=== PATIENT | male | born 1980 | race American Indian/Alaskan Native ===

== ENCOUNTER 2017-03-28 03:07 | Emergency (ER) | payer SELFPAY ==
[2017-03-28] MEDS ORDERED: DILAUDID IV ONE (04:07)
[2017-03-28] MEDS ORDERED: ZOFRAN IV ONE (04:07)
[2017-03-28 06:45] LABS: Basophils % (Auto) 0.6 % (0.0-1.8); Eosinophils % (Auto) 2.1 % (0.0-4.3); Hemoglobin 14.4 gm/dl (11.8-15.2); White Blood Count 6.4 K/mm3 (4.5-11.0)
[2017-03-28 06:54] LABS: Hematocrit 43.8 % (35.5-45.6); Mean Corpuscular Hemoglobin 32 pg (28-32); Mean Corpuscular Volume 98 fl (84-94); Red Blood Count 4.48 M/mm3 (3.65-5.03)
[2017-03-28 06:55] LABS: Mean Corpuscular HGB Conc 33 % (32-34); Platelet Count 284 K/mm3 (140-440); Red Cell Distribution Width 12.2 % (13.2-15.2)
[2017-03-28 07:08] LABS: Alanine Aminotransferase 11 units/L (7-56); Albumin 4.1 g/dL (3.9-5); Albumin/Globulin Ratio 1.6 %; Alkaline Phosphatase 41 units/L (35-129); Anion Gap 17 mmol/L; BUN/Creatinine Ratio 11.11; Blood Urea Nitrogen 10 mg/dL (9-20); Calcium 8.7 mg/dL (8.4-10.2); Carbon Dioxide 28 mmol/L (22-30); Chloride 102.3 mmol/L (98-107); Glucose 93 mg/dL (75-100); Potassium 3.9 mmol/L (3.6-5.0); Sodium 143 mmol/L (137-145); Total Protein 6.7 g/dL (6.3-8.2)
[2017-03-28 07:18] VITALS: BP 110/78
--- NOTE | 2017-03-28 07:19 | Emergency Department Report ---
ED Eye Problem HPI - General Chief complaint: Eye Problems Stated complaint: UNABLE TO SEE Time Seen by Provider: 03/28/17 06:16 Source: patient, family Mode of arrival: Ambulatory Limitations: No Limitations - History of Present Illness chief complaint: eye pain -: Gradual, During the night Onset Description: gradual Location: right eye, left eye Place: home If Injury: none Eye Symptoms: burning Severity scale (0 -10): 6 If Pain, Quality: burning Context: other Associated Symptoms: none Treatments Prior to Arrival: none - Related Data Patient Tetanus UTD: Yes Previous Rx's Medication Instructions Recorded Last Taken Type Ibuprofen [Motrin] 800 mg PO Q8HR PRN #20 tablet 03/28/17 Unknown Rx Polymyxin B Sulf/Trimethoprim 1 drop OP QID #1 bottle 03/28/17 Unknown Rx [Polytrim Eye Drops [id number]/0.1%] Allergies Allergy/AdvReac Type Severity Reaction Status Date / Time No Known Allergies Allergy Unverified 03/28/17 03:24 ED Review of Systems ROS: Stated complaint: UNABLE TO SEE Other details as noted in HPI Comment: All other systems reviewed and negative Eyes: eye pain Respiratory: no symptoms reported Cardiovascular: as per HPI ED Past Medical Hx - Past Medical History Previous Medical History?: No - Surgical History Past Surgical History?: No - Family History Family history: hypertension - Social History Smoking Status: Current Every Day Smoker Substance Use Type: Alcohol, Cocaine, Marijuana - Medications Home Medications: Home Medications Medication Instructions Recorded Confirmed Last Taken Type Ibuprofen [Motrin] 800 mg PO Q8HR PRN #20 tablet 03/28/17 Unknown Rx Polymyxin B Sulf/Trimethoprim 1 drop OP QID #1 bottle 03/28/17 Unknown Rx [Polytrim Eye Drops [id number]/0.1%] ED Physical Exam - General Limitations: No Limitations General appearance: alert, in no apparent distress - Head Head exam: Present: atraumatic - Eye Eye exam: Present: conjunctival injection - ENT ENT exam: Present: normal exam - Neck Neck exam: Present: normal inspection - Respiratory Respiratory exam: Present: normal lung sounds bilaterally - Cardiovascular Cardiovascular Exam: Present: regular rate - GI/Abdominal GI/Abdominal exam: Present: soft - Psychiatric Psychiatric exam: Present: normal affect - Skin Skin exam: Present: warm ED Course Vital Signs 03/28/17 03/28/17 03/28/17 03:24 05:22 06:31 Temperature 97.6 F Pulse Rate 86 62 Respiratory 20 18 18 Rate Blood Pressure 125/81 128/83 O2 Sat by Pulse 100 99 99 Oximetry ED Medical Decision Making - Lab Data Result diagrams: 03/28/17 06:31 03/28/17 06:31 Critical care attestation.: If time is entered above; I have spent that time in minutes in the direct care of this critically ill patient, excluding procedure time. ED Disposition Clinical Impression: Eye pain Qualifiers: Laterality: bilateral Qualified Code(s): H57.13 - Ocular pain, bilateral Disposition: DC-01 TO HOME OR SELFCARE Is pt being admited?: No Does the pt Need Aspirin: No Condition: Stable Prescriptions: Ibuprofen [Motrin] 800 mg PO Q8HR PRN #20 tablet PRN Reason: Pain Polymyxin B Sulf/Trimethoprim [Polytrim Eye Drops [id number]/0.1%] 1 drop OP QID #1 bottle Referrals: PRIMARY CARE, [Primary Care Provider] - 3-5 Days
== END 2017-03-28 07:57 | disposition home or self-care (01) ==
LOC: ED 03:07
DX: H57.13 Ocular pain, bilateral (principal); F17.200 Nicotine dependence, unspecified, uncomplicated; F12.10 Cannabis abuse, uncomplicated; F10.10 Alcohol abuse, uncomplicated
CPT/HCPCS: 36415; 80053; 85025; 96374; 96375; 99283; J1170; J2405